=== PATIENT | male | born 1995 ===

== ENCOUNTER 2016-09-21 18:37 | Emergency (ER) | payer SELFPAY ==
[~2016-09-21] VITALS: Ht 175.3 cm; Wt 59.0 kg
[2016-09-21 18:41] VITALS: BP 132/83; PULSE 66; RESP 22; O2SAT 99
== END 2016-09-21 19:00 | disposition left against medical advice (07) ==
LOC: SED 18:37
DX: Z53.21 Procedure and treatment not carried out due to patient leaving prior to being seen by health care provider (principal)